=== PATIENT | female | born 1970 | race Caucasian/White ===

== ENCOUNTER 2021-05-21 10:09 | Day surgery (SDC) | payer SELFPAY ==
[2021-05-20 17:40] VITALS: BMI 26.4
[2021-05-21] MEDS ORDERED: BACITRACIN 15 GM TUBE TOPICAL OINTMENT ONE (12:39)
[2021-05-21] MEDS ORDERED: MIDAZOLAM HCL 2 MG/2 ML SINGLE DOSE VIAL ONE (13:11)
[2021-05-21] MEDS ORDERED: PROPOFOL 20 ML ONE (13:11)
[2021-05-21] MEDS ORDERED: LIDOCAINE HCL/PF 2% SDV 5ML VIAL ONE (13:12)
[2021-05-21] MEDS ORDERED: MINERAL OIL 25 ML OIL TP ONE (13:45)
[2021-05-21] MEDS ORDERED: SODIUM CHLORIDE 0.9% P/F 10 ML VIAL IJ ONE (14:26)
[2021-05-21] MEDS ORDERED: ceFAZolin SODIUM 1 GM VIAL ONE (14:26)
[2021-05-21] MEDS ORDERED: DEXAMETHASONE SOD PHOSPHATE 4 MG/1 ML VIAL ONE (14:28)
[2021-05-21] MEDS ORDERED: GLYCOPYRROLATE 0.2 MG/1 ML VIAL ONE (14:29)
[2021-05-21] MEDS ORDERED: KETOROLAC TROMETHAMINE 30 MG/1 ML VIAL ONE (14:35)
[2021-05-21] MEDS ORDERED: BACITRACIN 0.9 GM PACKET TP ONE (15:10)
[2021-05-21] MEDS ORDERED: ONDANSETRON 4 MG/2 ML VIAL IVPUSH PRN (15:55)
[2021-05-21] MEDS ORDERED: oxyCODONE HCL 5 MG TABLET PO PRN ×2 (15:55)
[2021-05-21] MEDS ORDERED: LACTATED RINGERS SOLUTION 1,000 ML IV SCH (16:00)
[2021-05-21 17:20] VITALS: BP 133/80; PULSE 56; TEMP 98.2
== END 2021-05-21 17:24 | disposition home or self-care (01) ==
LOC: JASU-SURG 10:09
PROVIDERS: ATTEND Plastic Surgery
CPT/HCPCS: 81025; 94760; C9803-CS; U0003; U0005